=== PATIENT | male | born 1980 | race Two or more races ===

== ENCOUNTER 2017-07-15 17:46 | Emergency (ER) | payer SELFPAY ==
--- NOTE | 2017-07-15 18:28 | ED Physician Chart ---
ED Chief Complaint/HPI - Patient Information Date Seen:: 07/15/17 Time Seen:: 17:55 Chief Complaint:: Flank Pain History of Present Illness:: onset x 3 days of intermittent, crampy, bilateral abdominal and flank pain, N/V/ D, x 6 ; pt denies trauma, H/As, S/t, LOC, ALOC, AMS, neck pain, C/P, SOB, cough , A/C, fever, chills, or urinary s/s Allergies:: Allergies Allergy/AdvReac Type Severity Reaction Status Date / Time No Known Allergies Allergy Verified 07/15/17 18:06 Vitals:: Vital Signs - 8 hr 07/15/17 17:55 Temp 98.1 F HR 114 RR 19 BP 129/86 O2 Sat % 96 Historian:: Patient, Family Member Review:: Nurse's Note Reviewed <Carlos Carrasco - Last Filed: 07/15/17 18:22> - Patient Information Allergies:: Allergies Allergy/AdvReac Type Severity Reaction Status Date / Time No Known Allergies Allergy Verified 07/15/17 18:06 Vitals:: Vital Signs - 8 hr 07/15/17 07/15/17 17:55 19:17 Temp 98.1 F 98.0 F HR 114 90 RR 19 16 BP 129/86 122/81 O2 Sat % 96 97 <Garrett Gillis - Last Filed: 07/15/17 21:35> ED Review of Systems - Review of Systems General/Constitutional: No fever, No chills, No weight loss, No weakness, No diaphoresis, No edema, No loss of appetite Skin: No skin lesions, No rash, No bruising Head: No headache, No light-headedness Eyes: No loss of vision, No pain, No diplopia ENT: No earache, No nasal drainage, No sore throat, No tinnitus Neck: No neck pain, No swelling, No thyromegaly, No stiffness, No mass noted Cardio Vascular: No chest pain, No palpitations, No PND, No orthopnea, No edema Pulmonary: No SOB, No cough, No sputum, No wheezing GI: Nausea, Vomiting, Diarrhea, Pain, No melena, No hematochezia, No constipation, No hematemesis G/U: No dysuria, No frequency, No hematuria, No nacturia Musculoskeletal: No bone or joint pain, No back pain, No muscle pain Endocrine: No polyuria, No polydipsia Psychiatric: No prior psych history, No depression, No anxiety, No suicidal ideation, No homicidal ideation, No auditory hallucination, No visual hallucination Hematopoietic: No bruising, No lymphadenopathy Allergic/Immuno: No urticaria, No angioedema Neurological: No syncope, No focal symptoms, No weakness, No paresthesia, No headache, No seizure, No dizziness, No confusion, No vertigo <Carlos Carrasco - Last Filed: 07/15/17 18:22> ED Past Medical History - Past Medical History Obtainable: Yes Past Medical History: Dyslipidemia Family History: HTN Social History: Smoker, Alcohol, Illicit Drug Use, , Employed Surgical History: None Psychiatricy History: None Medication: Reviewed <Carlos Carrasco - Last Filed: 07/15/17 18:22> Family Medical History - Family Member Father History Unknown: Yes <Carlos Carrasco - Last Filed: 07/15/17 18:22> ED Physical Exam - Physical Examination General/Constitutional: Awake, Well-developed, well-nourished, Alert, No distress, GCS 15, Non-toxic appearing, Ambulatory Head: Atraumatic Eyes: Lids, conjuctiva normal, PERRL, EOMI Skin: Nl inspection, No rash, No skin lesions, No ecchymosis, Well hydrated, No lymphadenopathy ENMT: External ears, nose nl, TM canals nl, Nasal exam nl, Lips, teeth, gums nl , Oropharynx nl, Tonsils nl Neck: Nontender, Full ROM w/o pain, No JVD, No nuchal rigidity, No bruit, No mass, No stridor Respiratory: Nl effort/Exclusion, Clear to Auscultation, No Wheeze/Rhonchi/Rales Cardio Vascular: RRR, No murmur, gallop, rubs, NL S1 S2, Carotid/Femoral/Distal pulses equal bilaterally GI: No tenderness/rebounding/guarding, No organomegaly, No hernia, Normal BS's, Nondistended, No mass/bruits, No McBurney tenderness, Rectum exam nl : No CVA tenderness Extremities: No tenderness or effusion, Full ROM, normal strength in all extremities, No edema, Normal digits & nails Neuro/Psych: Alert/oriented, DTR's symmetric, Normal sensory exam, Normal motor strength, Judgement/insight normal, Mood normal, Normal gait, No focal deficits Misc: Normal back, No paraspinal tenderness <Carlos Carrasco - Last Filed: 07/15/17 18:22> ED Labs/Radiology/EKG Results - Lab Results Results: Laboratory Tests 07/15/17 07/15/17 07/15/17 18:45 18:45 18:45 WBC 14.3 H RBC 5.48 Hgb 16.9 Hct 49.1 MCV 89.5 MCH 30.9 H MCHC Differential 34.5 RDW 11.8 Plt Count 311 MPV 7.6 Neutrophils % 56.6 Lymphocytes % 35.5 Monocytes % 6.2 Eosinophils % 1.1 Basophils % 0.6 PT 9.5 INR 0.91 D-Dimer 100 Sodium 136 Potassium 3.0 L Chloride 103 Carbon Dioxide 24.1 Anion Gap 11.9 BUN 21 Creatinine 0.9 Est GFR ( Amer) > 60.0 Est GFR (Non-Af Amer) > 60.0 BUN/Creatinine Ratio 23.3 Glucose 127 H Whole Bld Lactic Acid Calcium 9.2 Total Bilirubin 0.6 AST 34 ALT 63 H Alkaline Phosphatase 69 Ammonia Creatine Kinase 97 Troponin I B-Natriuretic Peptide Total Protein 6.9 Albumin 4.3 Globulin 2.6 Albumin/Globulin Ratio 1.7 Triglycerides 459 H Cholesterol 224 H LDL Cholesterol Direct 140 HDL Cholesterol 35 Amylase 33 Lipase 22 Ethyl Alcohol < 10 07/15/17 07/15/17 07/15/17 18:45 18:45 18:45 WBC RBC Hgb Hct MCV MCH MCHC Differential RDW Plt Count MPV Neutrophils % Lymphocytes % Monocytes % Eosinophils % Basophils % PT INR D-Dimer Sodium Potassium Chloride Carbon Dioxide Anion Gap BUN Creatinine Est GFR ( Amer) Est GFR (Non-Af Amer) BUN/Creatinine Ratio Glucose Whole Bld Lactic Acid Calcium Total Bilirubin AST ALT Alkaline Phosphatase Ammonia 52 Creatine Kinase Troponin I < 0.01 L B-Natriuretic Peptide < 5.0 L Total Protein Albumin Globulin Albumin/Globulin Ratio Triglycerides Cholesterol LDL Cholesterol Direct HDL Cholesterol Amylase Lipase Ethyl Alcohol 07/15/17 Unknown WBC RBC Hgb Hct MCV MCH MCHC Differential RDW Plt Count MPV Neutrophils % Lymphocytes % Monocytes % Eosinophils % Basophils % PT INR D-Dimer Sodium Potassium Chloride Carbon Dioxide Anion Gap BUN Creatinine Est GFR ( Amer) Est GFR (Non-Af Amer) BUN/Creatinine Ratio Glucose Whole Bld Lactic Acid 1.33 Calcium Total Bilirubin AST ALT Alkaline Phosphatase Ammonia Creatine Kinase Troponin I B-Natriuretic Peptide Total Protein Albumin Globulin Albumin/Globulin Ratio Triglycerides Cholesterol LDL Cholesterol Direct HDL Cholesterol Amylase Lipase Ethyl Alcohol <Garrett Gillis - Last Filed: 07/15/17 21:35> ED Assessment - Assessment General Assessment: 2 days ago the patient took one pill of XXX Rhino a drug to increased sexual performance. 2 hours later he developed vomiting, abdominal pain, and inability to urinate. He has had 20-30 times watery diarrhea. He has right lower quadrant and bilateral flank pain now. He also feels confused. PMH: Patient has a history of palpitations. He smokes one pack of cigarettes a day and drinks about 8 ounces of hard liquor daily. Patient's well-developed well- nourished no acute distress. Head, eyes, ears, nose and throat normal. Neck supple. Chest clear symmetrical breath sounds. Heart regular rhythm no murmur or extra sound. Abdomen: bowel sounds present; abdomen is soft; there is right lower quadrant and right groin tenderness <Garrett Gillis - Last Filed: 07/15/17 21:35> ED Septic Shock - . Is Septic Shock (SBP<90, OR Lactate>4 mmol\L) present?: No - <6hrs of presentation: Vital Signs: Vital Signs - 8 hr 07/15/17 17:55 Temp 98.1 F HR 114 RR 19 BP 129/86 O2 Sat % 96 <Carlos Carrasco - Last Filed: 07/15/17 18:22> - <6hrs of presentation: Vital Signs: Vital Signs - 8 hr 07/15/17 07/15/17 17:55 19:17 Temp 98.1 F 98.0 F HR 114 90 RR 19 16 BP 129/86 122/81 O2 Sat % 96 97 <Garrett Gillis - Last Filed: 07/15/17 21:35> ED Reassessment (Disposition) - Diagnosis Diagnosis:: Abdominal Pain; Flank Pain; N/V/D; AGE; Substance Abuse <Carlos Carrasco - Last Filed: 07/15/17 18:22> - Reassessment Reassessment:: Patient felt slightly improved at about 2119. Patient is discharged with a diagnosis of gastroenteritis, hypokalemia, and medication side effect. Patient' s abdomen was rechecked at 2129 and he had mild right lower quadrant tenderness and more marked tenderness in the right groin. There was no right lower quadrant guarding. Patient given a prescription for Zofran 4 mg oral disintegrating tablet #10 to take one every 4-6 hours for nausea and vomiting. - Aftercare/Follow up Instructions Aftercare/Follow-Up Instructions:: Refer to Discharge Instructions - Patient Disposition Discharge/Transfer:: Home Condition at Disposition:: Stable, Improved <Garrett Gillis - Last Filed: 07/15/17 21:35>
[2017-07-15] MEDS ORDERED: Sodium Chloride 0.9% 1,000 ML IV ONE ×2 (18:31→20:18)
[2017-07-15] MEDS ORDERED: Morphine Sulfate 2 mg/mL 1mL Syr IVP ONE (18:31)
[2017-07-15] MEDS ORDERED: Morphine Sulfate 4 mg/mL 1mL Syr ONE (18:36)
[2017-07-15 19:00] LABS: % BASOPHILS 0.6 % (0.0-2.0); % EOSINOPHILS 1.1 % (0.0-5.0); % LYMPHOCYTES 35.5 % (20.0-50.0); % MONOCYTES 6.2 % (2.0-10.0); % NEUTROPHILS 56.6 % (40.0-80.0); BASOPHILE ABSOLUTE 0.1 Th/cumm (0-0.2); EOSINOPHILE ABSOLUTE 0.2 Th/cmm (0.1-0.4); HEMATOCRIT 49.1 % (41.0-60); HEMOGLOBIN 16.9 gm/dL (12-16); LYMPHOCYTE ABSOLUTE 5.1 Th/cmm (1.5-3.0); MEAN CELL VOLUME 89.5 fl (80-99); MEAN CORPUSCULAR HEMOGLOBIN 30.9 pg (26.0-30.0); MEAN CORPUSCULAR HGB CONC 34.5 pg (28.0-36.0); MEAN PLATELET VOLUME 7.6 fl; MONOCYTE ABSOLUTE 0.9 Th/cmm (0.3-1.0); PLATELET COUNT 311 Th/cmm (150-400); RED BLOOD COUNT 5.48 Mil/cmm (4.30-5.70); RED CELL DISTRIBUTION WIDTH 11.8 % (11.5-20.0)
[2017-07-15 19:09] LABS: INR 0.91 (0.5-1.4); PROTHROMBIN TIME (TEST) 9.5 SECONDS (9.5-11.5); WHITE BLOOD COUNT 14.3 Th/cmm (4.8-10.8)
[2017-07-15 19:21] LABS: ALB/GLOB RATIO 1.7 (1.0-1.8); ALBUMIN 4.3 gm/dL (4.2-5.5); ALKALINE PHOSPHATASE 69 U/L (34-104); AMYLASE SERUM 33 U/L (29-103); ANION GAP 11.9 (7.0-16.0); BILIRUBIN,TOTAL 0.6 mg/dL (0.3-1.0); BUN - UREA NITROGEN 21 mg/dL (7-25); CALCIUM SERUM 9.2 mg/dL (8.6-10.3); CARBON DIOXIDE 24.1 mEq/L (21.0-31.0); CHLORIDE 103 mEq/L (98-107); CHOLESTEROL 224 mg/dL (<200); CREATININE - SERUM 0.9 mg/dL (0.7-1.3); CREATININE KINASE 97 U/L (30-223); GFR AFRICAN-AMERICAN > 60.0 ml/min (>90); GFR NON AFRICAN-AMERICAN > 60.0 ml/min; GLUCOSE 127 mg/dL (70-105); HDL -HIGH DENSITY LIPOPROTEIN 35 mg/dL (23-92); LIPASE 22 U/L (11-82); SGOT 34 U/L (13-39); SGPT/ALT 63 U/L (7-52); SODIUM SERUM 136 mEq/L (136-145); TOTAL PROTEIN,SERUM 6.9 gm/dL (6.0-8.3); TRIGLYCERIDES 459 mg/dL (<150)
[2017-07-15 19:41] LABS: DDIMER QUANT 100 ng/mL (100-400)
[2017-07-15 20:01] LABS: URINE MICROSCOPIC INDICATED? YES; URINE SOURCE CLEAN C
[2017-07-15 20:03] LABS: URINE BILIRUBIN NEGATIVE (NEGATIVE); URINE BLOOD NEGATIVE (NEGATIVE); URINE GLUCOSE (UA) NEGATIVE (NEGATIVE); URINE KETONE NEGATIVE (NEGATIVE); URINE LEUKOCYTE ESTERASE NEGATIVE (NEGATIVE); URINE NITRATE NEGATIVE (NEGATIVE); URINE PH 5.5 (4.6 - 8.0); URINE PROTEIN NEGATIVE (NEGATIVE); URINE UROBILINOGEN 0.2 E.U./dL (0.2 - 1.0)
[2017-07-15] MEDS ORDERED: HYDROmorphone 1 mg/mL 1mL Syr IVP STA (20:10)
[2017-07-15] MEDS ORDERED: HYDROmorphone 1 mg/mL 1mL Syr ONE (20:12)
[2017-07-15 20:14] LABS: URINE BACTERIA NONE SEEN /hpf (NONE SEEN); URINE CLARITY CLEAR (CLEAR); URINE COLOR YELLOW; URINE EPITHELIAL CELLS NONE SEEN /lpf (FEW); URINE RBC NONE SEEN /hpf (0-5); URINE WBC NONE SEEN /hpf (0-5)
[2017-07-15] MEDS ORDERED: Potassium Chloride 20 mEq ER Tab PO ONE ×2 (20:21→20:30)
[2017-07-15 20:35] LABS: AMPHETAMINE URINE NEGATIVE (NEGATIVE); BARBITURATES URINE NEGATIVE (NEGATIVE); BENZODIAZEPINES QUAL URINE NEGATIVE (NEGATIVE); CANNABINOID THC NEGATIVE (NEGATIVE); COCAINE METABOLITE QUAL URINE NEGATIVE (NEGATIVE); METHADONE URINE NEGATIVE (NEGATIVE); METHAMPHETAMINES QUAL URINE NEGATIVE (NEGATIVE); OPIATES (MORPHINE) QUAL. URINE NEGATIVE (NEGATIVE); PHENCYCLIDINE (PCP) URINE NEGATIVE (NEGATIVE); TRICYCLICS (TCA) QUAL. URINE NEGATIVE (NEGATIVE)
--- NOTE | 2017-07-16 07:40 | Diagnostic Imaging Report ---
CHEST X-RAY: AP view INDICATION: pain COMPARISON: None FINDINGS: There is mild elevation of the right hemidiaphragm. Low lung volumes are noted. There is exaggeration of the interstitial lung markings. There is no focal consolidation or pleural effusions The heart is normal in size. The osseous structures demonstrate no acute abnormalities. IMPRESSION: Low lung volumes and mild elevation of the right hemidiaphragm. No focal consolidation identified. Accentuation of the interstitial lung markings, nonspecific.
== END 2017-07-15 21:50 | disposition home or self-care (01) ==
LOC: ER 17:46
DX: K52.9 Noninfective gastroenteritis and colitis, unspecified (principal); E87.6 Hypokalemia; E78.5 Hyperlipidemia, unspecified; F17.200 Nicotine dependence, unspecified, uncomplicated
CPT/HCPCS: 99285; 96374; 96375; 96376; 94760; 93005; 71045; 84484; 83880; 36415; 85379; 83605; 80307; 85025; 85610; 81001; 80320; 82140; 82150; 82550; 83690; 83735; 80053; 80061; 87040; J2405 ×2; J1170; J7030